=== PATIENT | male | born 1940 | race Hispanic/Latino ===

== ENCOUNTER 2017-07-16 12:03 | Outpatient (CLI) | payer MEDICARE, OTHER ==
--- NOTE | 2017-07-16 13:04 | XRay Report ---
ROUTINE CHEST, TWO VIEWS: HISTORY: Shortness of breath. The trachea, heart, mediastinal contour, lung rojas and bony thorax are unremarkable. IMPRESSION: Unremarkable chest x-ray.
== END 2017-07-16 12:04 | disposition home or self-care (01) ==
LOC: XRAY 12:03
PROVIDERS: ATTEND Internal Medicine
DX: J44.9 Chronic obstructive pulmonary disease, unspecified (principal)
CPT/HCPCS: 71020

== ENCOUNTER 2019-02-16 10:31 | Day surgery (SDC) | payer MEDICARE, OTHER ==
[~2019-02-16 10:31] MED LIST: IOPIDINE ONE; MYDRIACYL ONE; NEOFRIN ONE
[2019-02-16] MEDS ORDERED: IOPIDINE OD ONE ×2 (11:08→12:12)
[2019-02-16] MEDS ORDERED: MYDRIACYL OD ONE (11:08)
[2019-02-16] MEDS ORDERED: NEOFRIN OD ONE (11:08)
[2019-02-16 11:26] VITALS: BP 142/73
== END 2019-02-16 12:14 | disposition home or self-care (01) ==
LOC: OR 10:31
PROVIDERS: ATTEND Specialist
DX: H26.491 Other secondary cataract, right eye (principal); E11.36 Type 2 diabetes mellitus with diabetic cataract; E11.51 Type 2 diabetes mellitus with diabetic peripheral angiopathy without gangrene; I73.9 Peripheral vascular disease, unspecified; E78.00 Pure hypercholesterolemia, unspecified; Z79.899 Other long term (current) drug therapy; Z79.82 Long term (current) use of aspirin; Z98.41 Cataract extraction status, right eye; Z98.42 Cataract extraction status, left eye; Z98.890 Other specified postprocedural states
CPT/HCPCS: 82962

== ENCOUNTER 2019-04-04 08:48 | Outpatient (CLI) | payer MEDICARE, OTHER ==
[2019-04-04 09:30] LABS: Chol/HDL Ratio 3.13 %
[2019-04-07 11:19] LABS: Vitamin D, 25-OH, D2 <4 ng/mL
== END 2019-04-04 08:49 | disposition home or self-care (01) ==
LOC: LAB 08:48
PROVIDERS: ATTEND Internal Medicine
DX: E11.9 Type 2 diabetes mellitus without complications (principal); Z13.21 Encounter for screening for nutritional disorder; E78.5 Hyperlipidemia, unspecified; E78.00 Pure hypercholesterolemia, unspecified; I10 Essential (primary) hypertension
CPT/HCPCS: 36415; 80061; 82306; 83036

== ENCOUNTER 2019-07-28 09:34 | Outpatient (CLI) | payer MEDICARE, OTHER ==
[2019-07-28 11:14] LABS: Chol/HDL Ratio 2.66 %
[2019-07-31 13:20] LABS: Vitamin D, 25-OH, D2 <4 ng/mL
== END 2019-07-28 09:35 | disposition home or self-care (01) ==
LOC: LAB 09:34
PROVIDERS: ATTEND Internal Medicine
DX: E11.9 Type 2 diabetes mellitus without complications (principal); E78.5 Hyperlipidemia, unspecified; Z13.21 Encounter for screening for nutritional disorder; I10 Essential (primary) hypertension
CPT/HCPCS: 36415; 80061; 82306; 83036

== ENCOUNTER 2020-12-24 11:38 | Outpatient (CLI) | payer MEDICARE, OTHER ==
[2020-12-24 12:04] LABS: Basophils % (Auto) 0.5 % (0.0-1.8); Eosinophils # (Auto) 0.1 K/mm3 (0.0-0.4); Eosinophils % (Auto) 1.5 % (0.0-4.3); Hematocrit 36.4 % (35.5-45.6); Hemoglobin 11.6 gm/dl (11.8-15.2); Lymphocytes % (Auto) 22.5 % (13.4-35.0); Mean Corpuscular HGB Conc 32 % (32-34); Mean Corpuscular Volume 95 fl (84-94); Monocytes # (Auto) 0.4 K/mm3 (0.0-0.8); Monocytes % (Auto) 8.4 % (0.0-7.3); Platelet Count 58 K/mm3 (140-440); Red Blood Count 3.84 M/mm3 (3.65-5.03); Red Cell Distribution Width 18.9 % (13.2-15.2)
[2020-12-24 13:00] LABS: Alanine Aminotransferase 22 units/L (7-56); Albumin 4.2 g/dL (3.9-5); BUN/Creatinine Ratio 14; Blood Urea Nitrogen 13 mg/dL (9-20); Calcium 9.2 mg/dL (8.4-10.2); Chol/HDL Ratio 2.38 %; HDL Cholesterol 36 mg/dL (40-59); Hemolysis Index 1; LDL Cholesterol,Direct 43 mg/dL (50-130)
== END 2020-12-24 11:39 | disposition home or self-care (01) ==
LOC: LAB 11:38
PROVIDERS: ATTEND Internal Medicine
DX: Z13.29 Encounter for screening for other suspected endocrine disorder (principal); E11.9 Type 2 diabetes mellitus without complications; E78.5 Hyperlipidemia, unspecified; N40.0 Benign prostatic hyperplasia without lower urinary tract symptoms; D69.6 Thrombocytopenia, unspecified; E55.9 Vitamin D deficiency, unspecified; Z00.00 Encounter for general adult medical examination without abnormal findings
CPT/HCPCS: 36415; 80053; 80061; 82306; 83036; 84443; 85025

== ENCOUNTER 2021-05-08 09:08 | Outpatient (CLI) | payer MEDICARE, OTHER ==
[2021-05-08 09:35] LABS: Basophils % (Auto) 0.9 % (0.0-1.8); Eosinophils # (Auto) 0.1 K/mm3 (0.0-0.4); Eosinophils % (Auto) 1.1 % (0.0-4.3); Hematocrit 31.9 % (35.5-45.6); Lymphocytes # (Auto) 0.9 K/mm3 (1.2-5.4); Lymphocytes % (Auto) 18.9 % (13.4-35.0); Mean Corpuscular HGB Conc 32 % (32-34); Mean Corpuscular Volume 91 fl (84-94); Monocytes # (Auto) 0.4 K/mm3 (0.0-0.8); Monocytes % (Auto) 8.5 % (0.0-7.3); Red Blood Count 3.51 M/mm3 (3.65-5.03)
[2021-05-08 10:02] LABS: Red Cell Distribution Width 21.2 % (13.2-15.2)
[2021-05-08 10:09] LABS: Platelet Count 63 K/mm3 (140-440)
== END 2021-05-08 09:09 | disposition home or self-care (01) ==
LOC: LAB 09:08
PROVIDERS: ATTEND Internal Medicine
DX: E11.9 Type 2 diabetes mellitus without complications (principal); I10 Essential (primary) hypertension; N40.0 Benign prostatic hyperplasia without lower urinary tract symptoms
CPT/HCPCS: 36415; 83036; 84153; 85025

== ENCOUNTER 2021-09-25 10:00 | Outpatient (CLI) | payer MEDICARE, OTHER ==
[2021-09-25 10:46] LABS: Basophils % (Auto) 0.5 % (0.0-1.8); Eosinophils % (Auto) 0.6 % (0.0-4.3); Lymphocytes # (Auto) 1.1 K/mm3 (1.2-5.4); Lymphocytes % (Auto) 20.1 % (13.4-35.0); Mean Corpuscular HGB Conc 30 % (32-34); Mean Corpuscular Volume 90 fl (84-94); Monocytes # (Auto) 0.4 K/mm3 (0.0-0.8); Monocytes % (Auto) 7.1 % (0.0-7.3); Red Blood Count 3.96 M/mm3 (3.65-5.03)
[2021-09-25 11:08] LABS: Chol/HDL Ratio 2.6 %
[2021-09-25 11:21] LABS: Hematocrit 35.5 % (35.5-45.6); Hemoglobin 10.7 gm/dl (11.8-15.2)
[2021-09-25 12:54] LABS: Platelet Count 70 K/mm3 (140-440)
== END 2021-09-25 10:01 | disposition home or self-care (01) ==
LOC: LAB 10:00
PROVIDERS: ATTEND Internal Medicine
DX: D69.6 Thrombocytopenia, unspecified (principal); E11.9 Type 2 diabetes mellitus without complications; E78.5 Hyperlipidemia, unspecified
CPT/HCPCS: 36415; 80061; 83036; 85025

== ENCOUNTER 2022-02-06 11:42 | Outpatient (CLI) | payer MEDICARE, OTHER ==
[2022-02-06 12:23] LABS: Basophils # (Auto) 0.1 K/mm3 (0.0-0.1); Basophils % (Auto) 0.8 % (0.0-1.8); Eosinophils % (Auto) 0.6 % (0.0-4.3); Hematocrit 38.5 % (35.5-45.6); Hemoglobin 11.9 gm/dl (11.8-15.2); Lymphocytes # (Auto) 0.9 K/mm3 (1.2-5.4); Lymphocytes % (Auto) 12.5 % (13.4-35.0); Mean Corpuscular HGB Conc 31 % (32-34); Mean Corpuscular Volume 98 fl (84-94); Monocytes # (Auto) 0.4 K/mm3 (0.0-0.8); Monocytes % (Auto) 5.6 % (0.0-7.3); Red Blood Count 3.95 M/mm3 (3.65-5.03)
[2022-02-06 12:47] LABS: Platelet Count 58 K/mm3 (140-440); Red Cell Distribution Width 20.7 % (13.2-15.2)
[2022-02-06 12:50] LABS: Alanine Aminotransferase 23 units/L (7-56); Albumin 4.7 g/dL (3.9-5); BUN/Creatinine Ratio 17; Blood Urea Nitrogen 15 mg/dL (9-20); Calcium 10.2 mg/dL (8.4-10.2); Chol/HDL Ratio 2.83 %; HDL Cholesterol 36 mg/dL (40-59); Hemolysis Index 4; LDL Cholesterol,Direct 43 mg/dL (50-130)
== END 2022-02-06 11:43 | disposition home or self-care (01) ==
LOC: LAB 11:42
PROVIDERS: ATTEND Internal Medicine
DX: E11.9 Type 2 diabetes mellitus without complications (principal); Z00.00 Encounter for general adult medical examination without abnormal findings; E78.5 Hyperlipidemia, unspecified; D69.6 Thrombocytopenia, unspecified
CPT/HCPCS: 36415; 80053; 80061; 83036; 84443; 85025

== ENCOUNTER 2022-06-26 09:27 | Outpatient (CLI) | payer MEDICARE, OTHER ==
[2022-06-26 10:31] LABS: Chol/HDL Ratio 2.31 %
== END 2022-06-26 09:28 | disposition home or self-care (01) ==
LOC: LAB 09:27
PROVIDERS: ATTEND Internal Medicine
DX: E11.9 Type 2 diabetes mellitus without complications (principal); E78.5 Hyperlipidemia, unspecified
CPT/HCPCS: 36415; 80061; 83036